=== PATIENT | female | born 1985 | race Two or more races ===

== ENCOUNTER 2017-11-01 15:00 | Inpatient (IN) | payer OTHER ==
[~2017-11-01] VITALS: Ht 170.2 cm; Wt 86.6 kg
[~2017-11-01 15:00] MED LIST: PRENATAL + DHA1 EAC1
== END 2017-11-27 12:13 | disposition home or self-care (01) | DRG 775 ==
LOC: OB/GYN 11-24 23:00 → LDR 11-24 23:00 → OB/GYN 11-25 16:01 → LDR 11-25 18:16 → OB/GYN 11-25 19:58
PROC: 10D07Z6 Extraction of Products of Conception, Vacuum, Via Natural or Artificial Opening (ICD-10-PCS; principal; 2017-11-25)
PROC: 0DQP0ZZ Repair Rectum, Open Approach (ICD-10-PCS; 2017-11-25)
PROC: 0W8NXZZ Division of Female Perineum, External Approach (ICD-10-PCS; 2017-11-25)
PROC: 10907ZC Drainage of Amniotic Fluid, Therapeutic from Products of Conception, Via Natural or Artificial Opening (ICD-10-PCS; 2017-11-25)
PROC: 3E033VJ Introduction of Other Hormone into Peripheral Vein, Percutaneous Approach (ICD-10-PCS; 2017-11-25)
PROC: 4A1HXCZ Monitoring of Products of Conception, Cardiac Rate, External Approach (ICD-10-PCS; 2017-11-25)
DX: O70.3 Fourth degree perineal laceration during delivery (principal); Z37.0 Single live birth; Z3A.39 39 weeks gestation of pregnancy

== ENCOUNTER 2017-11-22 08:33 | Outpatient (CLI) | payer OTHER | END 2017-11-22 09:49 | disposition home or self-care (01) | LOC: NST 08:33 | DX: Z34.83 Encounter for supervision of other normal pregnancy, third trimester (principal) ==

== ENCOUNTER 2021-12-12 09:37 | Emergency (ER) | payer OTHER ==
[~2021-12-12] VITALS: Ht 170.2 cm; Wt 70.3 kg
[2021-12-12] MEDS ORDERED: LEVSIN0.125 MG PO (22:14)
[2021-12-12] MEDS ORDERED: PEPCID AC20 MG PO (22:14)
[2021-12-12] MEDS ORDERED: INTESTINEX680 M1 PO (22:14)
== END 2021-12-12 22:25 | disposition home or self-care (01) ==
LOC: ER 09:37
DX: E80.6 Other disorders of bilirubin metabolism (principal); R19.7 Diarrhea, unspecified

== ENCOUNTER 2024-10-06 15:31 | Emergency (ER) | payer OTHER ==
[~2024-10-06] VITALS: Ht 170.2 cm; Wt 59.0 kg
[~2024-10-06 15:31] MED LIST changes: +AMOX-CLAV 875-1 EACH PO; +INTESTINEX680 M1 PO; +LEVSIN0.125 MG PO; +PEPCID AC20 MG PO
[2024-10-06] MEDS ORDERED: KETOROLAC TROMETHAMINE 30 MG VIAL IM STA (17:56)
== END 2024-10-06 20:21 | disposition home or self-care (01) ==
LOC: ER 15:34
DX: J10.1 Influenza due to other identified influenza virus with other respiratory manifestations (principal); Z20.822 Contact with and (suspected) exposure to COVID-19

== ENCOUNTER 2024-11-26 07:48 | Emergency (ER) | payer OTHER ==
[~2024-11-26] VITALS: Ht 170.2 cm; Wt 74.8 kg
[2024-11-26] MEDS ORDERED: 0.9 % SODIUM CHLORIDE 500 ML IV STA (08:29)
[2024-11-26] MEDS ORDERED: ONDANSETRON HCL 2 MG/ML VIAL IV STA (08:30)
[2024-11-26] MEDS ORDERED: FAMOTIDINE/PF 20 MG/2 ML VIAL IV PUSH STA (08:30)
[2024-11-26] MEDS ORDERED: HYOSCYAMINE SULFATE 0.125 MG TAB.SUBL SL ONE (08:30)
[2024-11-26] MEDS ORDERED: ONDANSETRON HCL 2 MG/ML VIAL ONE ×2 (08:38→08:39)
[2024-11-26] MEDS ORDERED: HYOSCYAMINE SULFATE 0.125 MG TAB.SUBL ONE (08:38)
[2024-11-26] MEDS ORDERED: FAMOTIDINE/PF 20 MG/2 ML VIAL ONE (08:39)
[2024-11-26 09:33] LABS: HEMATOCRIT 40.6 % (36.0-45.00); HEMOGLOBIN 14.2 g/dL (12.0-15.00); MEAN CELL VOLUME 88.8 fL (80.00-100.00); MEAN CORPUSCULAR HGB CONC 34.9 g/dl (32.0-36.0); PLATELET COUNT 213 K/uL (150-450); RED BLOOD COUNT 4.57 M/uL (4.00-6.00); RED CELL DISTRIBUTION WIDTH 14.2 % (11.5-14.5)
[2024-11-26 10:05] LABS: CREATININE SERUM 0.91 mg/dL (0.55-1.02); GFR 69.56; POTASSIUM 4.21 mEq/L (3.5-5.1)
== END 2024-11-26 12:45 | disposition home or self-care (01) ==
LOC: ER 07:49
PROVIDERS: Emergency Medicine
DX: K52.89 Other specified noninfective gastroenteritis and colitis (principal); E86.0 Dehydration